=== PATIENT | male | born 1975 | race Caucasian/White ===

== ENCOUNTER 2017-12-06 16:45 | Emergency (ER) | payer MEDICAID ==
[~2017-12-06] VITALS: Ht 167.6 cm; Wt 67.3 kg
[~2017-12-06 16:45] MED LIST: BENZ2TAB58 PO; OLAN10TA3 PO
[2017-12-06] MEDS ORDERED: BENZ1TAB10 PO (17:54)
[2017-12-06] MEDS ORDERED: BARIUM SULFATE 0.1% SUSPENSION 450 ML BOTTLE PO ONE (18:00)
[2017-12-06] MEDS ORDERED: SODIUM CHLORIDE 0.9% 1,000 ML IV ONE (18:00)
[2017-12-06] MEDS ORDERED: IOVERSOL 320 MG/ML 100 ML VIAL ONE (18:09)
[2017-12-06 18:12] LABS: BASOPHILS % (AUTO) 0.2 % (0.0-2.0); HEMOGLOBIN 14.7 g/dL (13.5-17.5); LYMPHOCYTES # (AUTO) 0.9 K/uL (1.0-4.8); LYMPHOCYTES % (AUTO) 7.3 % (22.0-44.0); MEAN CORPUSCULAR HEMOGLOBIN 29.2 pg (26.0-34.0); MEAN CORPUSCULAR HGB CONC 34.2 G/dL (31.0-37.0); MEAN CORPUSCULAR VOLUME 85 fL (80-100); MONOCYTES # (AUTO) 0.6 K/uL (0.1-1.0); MONOCYTES % (AUTO) 5.1 % (2.0-9.0); NEUTROPHILS # (AUTO) 10.7 K/uL (1.8-7.7); NEUTROPHILS % (AUTO) 86.4 % (40.0-70.0); PLATELET COUNT (AUTO) 339 K/uL (150-450); RED BLOOD CELL COUNT(AUTO) 5.04 MIL/uL (4.50-5.90); RED CELL DISTRIBUTION WIDTH 13.3 % (11.5-14.5)
[2017-12-06] MEDS: KETOROLAC TROMETHAMINE 30 MG/ML VIAL IVP ONE ×2 (18:12→18:25)
[2017-12-06 18:31] LABS: ALANINE AMINOTRANSFERASE 18 U/L (12-78); ALBUMIN 3.2 g/dL (3.4-5.0); ALKALINE PHOSPHATASE 98 U/L (46-116); ANION GAP 5 mmol/L (8-16); ASPARTATE AMINOTRANSFERASE 11 U/L (15-37); BILIRUBIN,TOTAL 0.4 mg/dL (0.1-1.0); CALCIUM, TOTAL 8.7 mg/dL (8.8-10.5); CARBON DIOXIDE 35 mmol/L (22-29); CHLORIDE 101 mmol/L (98-107); CREATININE 0.78 mg/dL (0.60-1.30); GLOMERULAR FILTR. RATE CALC > 60 mL/min (>60); GLUCOSE,RANDOM 117 mg/dL (70-110); LIPASE 109 U/L (73-393); SODIUM SERUM 141 mmol/L (136-145); TOTAL PROTEIN, SERUM 7.1 g/dL (6.4-8.2); UREA NITROGEN, BLOOD 10 mg/dL (7-18)
[2017-12-06 18:33] LABS: POTASSIUM 2.9 mmol/L (3.5-5.1)
[2017-12-06] MEDS ORDERED: POTASSIUM CHLORIDE 20 MEQ ER TABLET PO ONE (18:45)
[2017-12-06 18:49] LABS: PLATELET MORPHOLOGY COMMENT LARGE PLTS PRESENT
[2017-12-06 20:23] LABS: APPEARANCE,URINE CLEAR (CLEAR); BILIRUBIN,URINE NEGATIVE (NEGATIVE); GLUCOSE, URINE (UA) NEGATIVE (NEGATIVE); KETONES,URINE NEGATIVE (NEGATIVE); LEUKOCYTE ESTERASE ,URINE NEGATIVE (NEGATIVE); NITRATE,URINE NEGATIVE (NEGATIVE); OCCULT BLOOD,URINE MODERATE (NEGATIVE); PH,URINE 6.5 (5.0-8.0); PROTEIN,URINE NEGATIVE (NEGATIVE)
[2017-12-06 20:31] LABS: BACTERIA,URINE Few /HPF (None Seen); CALCIUM OXALATE CRYSTALS,UR Moderate /LPF (None Seen); SQUAMOUS EPITHELIAL CELL,UR Few /LPF (None Seen); WBC,URINE 0-2 /HPF (0-5)
[2017-12-06 21:56] VITALS: BP 122/80
== END 2017-12-06 21:58 | disposition home or self-care (01) ==
LOC: EMS 16:46
DX: K40.90 Unilateral inguinal hernia, without obstruction or gangrene, not specified as recurrent (principal); E87.6 Hypokalemia; F25.9 Schizoaffective disorder, unspecified; J45.909 Unspecified asthma, uncomplicated; F19.90 Other psychoactive substance use, unspecified, uncomplicated
CPT/HCPCS: 36415; 74177; 80053; 81001; 83690; 85025; 96360; 99285; J1885; J7030; Q9967; Z7610

== ENCOUNTER 2022-04-29 22:20 | Inpatient (IN) | payer MEDICAID ==
[~2022-04-29] VITALS: Ht 175.3 cm; Wt 65.4 kg
[~2022-04-29 22:20] MED LIST changes: +BENZ1TAB96 PO; -BENZ2TAB58 PO; -OLAN10TA3 PO; +OLAN10TA74 PO
[2022-04-29 23:47] LABS: BASOPHILS % (AUTO) 0.6 % (0.0-2.0); EOSINOPHILS % (AUTO) 4.5 % (1.0-6.0); HEMATOCRIT 39.2 % (41-53); HEMOGLOBIN 13.5 g/dL (13.5-17.5); LYMPHOCYTES # (AUTO) 1.7 K/uL (1.0-4.8); LYMPHOCYTES % (AUTO) 21.3 % (22.0-44.0); MEAN CORPUSCULAR HEMOGLOBIN 29.8 pg (26.0-34.0); MEAN CORPUSCULAR HGB CONC 34.4 G/dL (31.0-37.0); MEAN CORPUSCULAR VOLUME 87 fL (80-100); MONOCYTES # (AUTO) 0.7 K/uL (0.1-1.0); MONOCYTES % (AUTO) 8.7 % (2.0-9.0); NEUTROPHILS # (AUTO) 5.3 K/uL (1.8-7.7); NEUTROPHILS % (AUTO) 64.9 % (40.0-70.0); PLATELET COUNT (AUTO) 286 K/uL (150-450); RED BLOOD CELL COUNT(AUTO) 4.52 MIL/uL (4.50-5.90); RED CELL DISTRIBUTION WIDTH 13.8 % (11.5-14.5)
[2022-04-29 23:57] LABS: ANION GAP 8 mmol/L (8-16); CALCIUM, TOTAL 8.9 mg/dL (8.8-10.5); CARBON DIOXIDE 30 mmol/L (22-29); CHLORIDE 101 mmol/L (98-107); CREATININE 0.99 mg/dL (0.60-1.30); GLUCOSE,RANDOM 93 mg/dL (70-110); POTASSIUM 3.5 mmol/L (3.5-5.1); SODIUM SERUM 139 mmol/L (136-145); UREA NITROGEN, BLOOD 16 mg/dL (7-18)
[2022-04-29 23:58] LABS: GLOMERULAR FILTR. RATE CALC > 60 mL/min (>60)
[2022-04-30 00:04] LABS: ALANINE AMINOTRANSFERASE 15 U/L (12-78); ALBUMIN 3.3 g/dL (3.4-5.0); ALKALINE PHOSPHATASE 66 U/L (46-116); ASPARTATE AMINOTRANSFERASE 11 U/L (15-37); BILIRUBIN,TOTAL 0.3 mg/dL (0.1-1.0); TOTAL PROTEIN, SERUM 6.5 g/dL (6.4-8.2)
[2022-04-30] MEDS ORDERED: LORazepam 2 MG TABLET PO PRN (00:15)
[2022-04-30] MEDS ORDERED: ZOLPIDEM TARTRATE 10 MG TABLET PO PRN (00:15)
[2022-04-30] MEDS ORDERED: HALOPERIDOL 5 MG TABLET PO PRN (00:15)
[2022-04-30 00:32] LABS: COVID AG,FIA SOURCE NASOPHARYNGEAL
[2022-04-30 01:04] LABS: APPEARANCE,URINE CLEAR (CLEAR); BILIRUBIN,URINE NEGATIVE (NEGATIVE); GLUCOSE, URINE (UA) TRACE mg/dL (NEGATIVE); KETONES,URINE NEGATIVE (NEGATIVE); LEUKOCYTE ESTERASE ,URINE NEGATIVE (NEGATIVE); NITRATE,URINE NEGATIVE (NEGATIVE); OCCULT BLOOD,URINE NEGATIVE (NEGATIVE); PH,URINE 6.5 (5.0-8.0); PROTEIN,URINE NEGATIVE (NEGATIVE); SPECIFIC GRAVITIY, URINE 1.006 (1.003-1.030); UROBILINOGEN,URINE <=1.0 mg/dL (<=1.0)
[2022-04-30 01:08] LABS: AMPHET/METH SCREEN,URINE POSITIVE (NEGATIVE); BARBITURATE SCREEN, URINE NEGATIVE (NEGATIVE); BENZODIAZEPINES SCREEN,URINE NEGATIVE (NEGATIVE); CANNABINOID SCREEN,URINE POSITIVE (NEGATIVE); COCAINE SCREEN,URINE NEGATIVE (NEGATIVE); METHADONE SCREEN, URINE NEGATIVE (NEGATIVE); OPIATE SCREEN,URINE NEGATIVE (NEGATIVE)
[2022-04-30 01:16] LABS: PHENCYCLIDINE SCREEN,URINE NEGATIVE (NEGATIVE)
[2022-04-30 17:46] VITALS: BP 98/61
[2022-04-30] MEDS ORDERED: NICO-800 TD (18:27)
[2022-05-01] MEDS ORDERED: MAG HYDROX/AL HYDROX/SIMETH ES 30 ML SUSPENSION UDCUP PO PRN (06:45)
[2022-05-01] MEDS ORDERED: ONDANSETRON HCL 4 MG TABLET PO PRN (06:45)
[2022-05-01] MEDS ORDERED: ACETAMINOPHEN 325 MG TABLET PO PRN (06:45)
[2022-05-01] MEDS ORDERED: GuaiFENesin/D-METHORPHAN [SUGAR-FREE] 200-20MG/10 ML SYRUP UDCUP PO PRN (06:45)
[2022-05-01] MEDS ORDERED: MAGNESIUM HYDROXIDE SUSPENSION 30 ML UDCUP PO PRN (06:45)
[2022-05-01] MEDS ORDERED: NICOTINE 14 MG/24 HOUR PATCH TD PRN (06:45)
[2022-05-01] MEDS ORDERED: DOCUSATE SODIUM 100 MG CAPSULE PO PRN (06:45)
[2022-05-01] MEDS ORDERED: IBUPROFEN 400 MG TABLET PO PRN (06:45)
[2022-05-01] MEDS ORDERED: PETROLATUM,WHITE 28 GM JELLY TP PRN (06:45)
[2022-05-01] MEDS ORDERED: CloNIDine HCL 0.1 MG TABLET PO PRN (06:45)
[2022-05-01] MEDS ORDERED: ALBUTEROL SULFATE HFA 90 MCG/PUFF 8 GM INHALER IH PRN (06:45)
[2022-05-01] MEDS ORDERED: LOPERAMIDE HCL 2 MG CAPSULE PO PRN (06:45)
[2022-05-01] MEDS: BACITRACIN 28 GM OINTMENT TP SCH ×2 (09:09→17:02)
[2022-05-01] MEDS: NICOTINE 7 MG/24 HOUR PATCH TD SCH (09:09)
[2022-05-01] MEDS ORDERED: PALIPERIDONE PALMITATE 156 MG/ML SYRINGE IM ONE (16:00)
[2022-05-02] MEDS: NICOTINE 7 MG/24 HOUR PATCH TD SCH (09:00)
[2022-05-02] MEDS: BACITRACIN 28 GM OINTMENT TP SCH ×2 (09:00→16:02)
[2022-05-02 09:41] VITALS: BP 156/92
[2022-05-02 16:38] VITALS: BP 142/89
[2022-05-03 08:54] VITALS: BP 145/90
[2022-05-03] MEDS: NICOTINE 7 MG/24 HOUR PATCH TD SCH (09:00)
[2022-05-03] MEDS: BACITRACIN 28 GM OINTMENT TP SCH ×2 (09:00→17:00)
[2022-05-03] MEDS ORDERED: PALI819S IM (12:43)
[2022-05-03 16:26] VITALS: BP 126/69
[2022-05-04] MEDS: BACITRACIN 28 GM OINTMENT TP SCH ×2 (09:00→17:13)
[2022-05-04 09:15] VITALS: BP 143/92
[2022-05-04 16:13] VITALS: BP 127/75
[2022-05-04] MEDS: NICOTINE 7 MG/24 HOUR PATCH TD PRN (16:20)
[2022-05-05 08:53] VITALS: BP 137/65
[2022-05-05] MEDS: BACITRACIN 28 GM OINTMENT TP SCH ×2 (09:00→16:20)
[2022-05-05] MEDS: NICOTINE 7 MG/24 HOUR PATCH TD PRN (13:21)
[2022-05-05 16:23] VITALS: BP 110/67
[2022-05-06 05:45] VITALS: BP 126/66
[2022-05-06 07:06] LABS: COVID AG,FIA SOURCE NASAL SWAB
[2022-05-06 08:00] VITALS: BP 124/70
[2022-05-06] MEDS: MULTIVITAMINS WITH MINERALS, THERAPEUTIC TABLET PO SCH ×2 (08:59→09:00)
[2022-05-06] MEDS: BACITRACIN 28 GM OINTMENT TP SCH ×2 (09:00→16:53)
[2022-05-06 16:51] VITALS: BP 110/68
[2022-05-07] MEDS: BACITRACIN 28 GM OINTMENT TP SCH ×2 (09:00→16:40)
[2022-05-07] MEDS: MULTIVITAMINS WITH MINERALS, THERAPEUTIC TABLET PO SCH (09:00)
[2022-05-07 09:46] VITALS: BP 129/89
[2022-05-07] MEDS: NICOTINE 7 MG/24 HOUR PATCH TD PRN (11:55)
[2022-05-07 16:27] VITALS: BP 142/76
[2022-05-08] MEDS: BACITRACIN 28 GM OINTMENT TP SCH (09:00)
[2022-05-08] MEDS: MULTIVITAMINS WITH MINERALS, THERAPEUTIC TABLET PO SCH ×2 (09:00→09:58)
[2022-05-08 09:03] VITALS: BP 139/87
[2022-05-08 16:00] VITALS: BP 138/85
[2022-05-09] MEDS: BACITRACIN 28 GM OINTMENT TP SCH (09:00)
[2022-05-09] MEDS: MULTIVITAMINS WITH MINERALS, THERAPEUTIC TABLET PO SCH (09:00)
[2022-05-29] MEDS ORDERED: PALIPERIDONE PALMITATE 156 MG/ML SYRINGE IM SCH (09:00)
== END 2022-05-09 13:20 | disposition home or self-care (01) | DRG 750 ==
LOC: EMS 22:27 → B3A 04-30 12:27 → 3EI 04-30 17:40
PROVIDERS: ADMIT Psychiatry & Neurology Child & Adolescent Psychiatry; ATTEND Psychiatry & Neurology Child & Adolescent Psychiatry
DX: F25.1 Schizoaffective disorder, depressive type (principal); R45.851 Suicidal ideations; F15.10 Other stimulant abuse, uncomplicated; G80.9 Cerebral palsy, unspecified; J45.909 Unspecified asthma, uncomplicated; Z20.822 Contact with and (suspected) exposure to COVID-19
CPT/HCPCS: 80053; 81003; 85025; 99285; G0480